=== PATIENT | female | born 1970 | race Caucasian/White ===

== ENCOUNTER 2016-10-29 12:43 | Inpatient (IN) | payer MEDICARE, OTHER ==
[2016-10-29] MEDS ORDERED: Sodium Chloride 0.9% 1,000 ML IV SCH ×2 (15:10→17:30)
[2016-10-29] MEDS ORDERED: Ondansetron HCl/PF 4 MG/2 ML Vial IVP PRN ×2 (15:10→16:13)
[2016-10-29] MEDS ORDERED: Ondansetron ODT 4 MG TAB SL PRN (15:10)
[2016-10-29 15:53] VITALS: BMI 20.9
[2016-10-29] MEDS ORDERED: Dextrose 50% Abboject 50 ML SYRINGE SLOW IVP PRN ×2 (16:13→16:49)
[2016-10-29] MEDS ORDERED: Promethazine HCl 25 MG/ML VIAL IM PRN ×2 (16:13)
[2016-10-29] MEDS ORDERED: Ondansetron ODT 4 MG TAB PO PRN (16:13)
[2016-10-29] MEDS ORDERED: Dextrose 5% in Water 1,000 ML IV PRN ×2 (16:13→16:49)
[2016-10-29] MEDS ORDERED: traMADol HCl 50 MG TAB PO PRN (16:31)
--- NOTE | 2016-10-29 16:32 | PRG ---
DATE OF SERVICE: 10/29/2016 Please see [facility] H\T\P for details. Ms. Machado is seen at the bedside. She is admitted to [facility] surgical floor. She is hemodynamically stable, more awake now and answering questions, complainin g of back pain, pelvic pain. ASSESSMENT: L5 transverse process fracture, sacral fracture, and sternal fracture. PLAN: We will defer to Dr. Daniel for operative versus conservative management of this sacral fr acture. Continue pain control for sternal and transverse process fracture.
[2016-10-29] MEDS ORDERED: Insulin Regular 300 UNITS/3 ML VIAL SC PRN (16:49)
[2016-10-29] MEDS ORDERED: Levothyroxine Sodium 100 MCG TAB PO SCH (17:45)
[2016-10-29] MEDS: Acetaminophen 500 MG TAB PO SCH ×2 (18:01→22:43)
[2016-10-29] MEDS: Ibuprofen 800 MG TAB PO SCH (18:01)
[2016-10-29] MEDS: traMADol HCl 50 MG TAB PO PRN (18:14)
[2016-10-29] MEDS: Sodium Chloride 0.9% 1,000 ML IV SCH ×2 (18:19→21:06)
[2016-10-29] MEDS: Topiramate 100 MG TAB PO SCH (21:06)
[2016-10-29] MEDS: Famotidine 20 MG TAB PO SCH (21:06)
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
[2016-10-30] MEDS: Ibuprofen 800 MG TAB PO SCH ×3 (01:11→16:29)
[2016-10-30] MEDS: Acetaminophen 500 MG TAB PO SCH (05:09)
[2016-10-30] MEDS: Levothyroxine Sodium 112 MCG TAB PO SCH (05:10)
[2016-10-30] MEDS: traMADol HCl 50 MG TAB PO PRN ×2 (05:10→21:05)
[2016-10-30 06:06] LABS: #Basophils 0.1 thou/uL (0.0-0.2); #Eosinphils 0.2 thou/uL (0.0-0.7); #Monocytes 0.5 thou/uL (0.11-0.59); #Neutrophils 6.2 thou/uL (1.40-6.50); %Basophils 0.7 % (0.0-1.0); %Eosinophils 2.2 % (0.0-10.0); %Lymphocytes 12.9 % (21.0-51.0); %Monocytes 5.9 % (0.0-10.0); Hematocrit 39.7 % (36.0-47.0); Mean Platelet Volume 7.5 fL (7.4-10.4); Red Blood Cell (RBC) Count 4.12 mill/uL (4.20-5.40)
[2016-10-30 06:21] LABS: Anion Gap 10 mmol/L (10-20); BUN (Urea Nitrogen) 11 mg/dL (7.0-18.7); Calc. Creatinine Clearance 83 mL/min (70-130); Calcium 8.3 mg/dL (7.8-10.44); Carbon Dioxide 22 mmol/L (22-29); Chloride 108 mmol/L (98-107); Estimated GFR-MDRD 86; Magnesium 1.6 mg/dL (1.6-2.6); Phosphorus 2.3 mg/dL (2.3-4.7)
[2016-10-30] MEDS: Sodium Chloride 0.9% 1,000 ML IV SCH ×2 (07:40→20:49)
[2016-10-30] MEDS: Topiramate 100 MG TAB PO SCH ×2 (08:22→20:51)
[2016-10-30] MEDS: Famotidine 20 MG TAB PO SCH ×2 (08:22→20:51)
[2016-10-30] MEDS ORDERED: Magnesium Sulfate 4 GM in Sodium Chloride 0.9% 250 ML 250 ML IVPB SCH (08:30)
[2016-10-30] MEDS ORDERED: HYDROcodone/Acetaminophen 5/325 mg Tablet PO SCH (10:00)
[2016-10-30] MEDS ORDERED: Acetaminophen 500 MG TAB PO SCH (10:15)
[2016-10-30] MEDS ORDERED: HYDROcodone/Acetaminophen 5/325 mg Tablet PO PRN ×2 (12:31)
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
[2016-10-31] MEDS: Ibuprofen 800 MG TAB PO SCH ×3 (00:09→16:52)
[2016-10-31] MEDS: Levothyroxine Sodium 112 MCG TAB PO SCH (06:12)
[2016-10-31] MEDS: Sodium Chloride 0.9% 1,000 ML IV SCH (06:15)
[2016-10-31] MEDS: Topiramate 100 MG TAB PO SCH ×2 (08:43→21:36)
[2016-10-31] MEDS: Famotidine 20 MG TAB PO SCH ×2 (08:50→21:36)
[2016-10-31] MEDS ORDERED: HYDROcodone/Acetaminophen 7.5/325 mg Tablet PO PRN ×2 (14:17)
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
[2016-10-31] MEDS: traMADol HCl 50 MG TAB PO PRN (19:50)
[2016-10-31] MEDS: Senokot S 8.6-50 MG TAB PO SCH (21:36)
[2016-11-01] MEDS: Ibuprofen 800 MG TAB PO SCH ×3 (00:29→17:50)
[2016-11-01] MEDS: Levothyroxine Sodium 112 MCG TAB PO SCH (05:53)
[2016-11-01] MEDS ORDERED: HYDROcodone/Acetaminophen 10/325 mg Tablet PO PRN (08:18)
[2016-11-01] MEDS: Polyethylene Glycol 3350 17 GM Packet PO SCH (09:02)
[2016-11-01] MEDS: Senokot S 8.6-50 MG TAB PO SCH ×2 (09:02→21:57)
[2016-11-01] MEDS: Topiramate 100 MG TAB PO SCH ×2 (09:02→21:58)
[2016-11-01] MEDS: Bethanechol Chloride 10 MG TAB PO SCH ×3 (09:03→21:57)
[2016-11-01] MEDS: Enoxaparin Sodium 40 MG/0.4 ML SYRINGE SC SCH (09:03)
[2016-11-01] MEDS: HYDROcodone/Acetaminophen 10/325 mg Tablet PO SCH ×4 (09:10→21:57)
[2016-11-01] MEDS: Famotidine 20 MG TAB PO SCH ×2 (09:11→21:56)
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
[2016-11-01 17:10] LABS: Bilirubin Negative (Negative); Blood, Urine Large (Negative); Glucose, Urine (Dipstick) >=1000 mg/dL (Negative); Ketone, Urine 40 mg/dL (Negative); Nitrite Positive (Negative); Protein, Urine (Dipstick) Trace mg/dL (Neg-Trace); Urobilinogen 0.2 mg/dL (0.2-1.0)
[2016-11-01 17:13] LABS: Bacteria/HPF 4+ HPF (None Seen); Hyaline Casts/LPF 0-3 HYALINE CAST LPF (0-3 Hyaline); Squamous Epithelial None Seen HPF (0-3)
[2016-11-01 17:39] LABS: RBC/HPF 21-50 HPF (0-3)
[2016-11-01 18:02] LABS: Yeast-All Forms 1+ HPF (None Seen)
[2016-11-01] MEDS ORDERED: Ciprofloxacin 500 MG TAB PO SCH (20:15)
[2016-11-02] MEDS: HYDROcodone/Acetaminophen 10/325 mg Tablet PO SCH ×6 (00:55→21:24)
[2016-11-02] MEDS: Ibuprofen 800 MG TAB PO SCH ×3 (00:55→17:26)
[2016-11-02] MEDS: Levothyroxine Sodium 112 MCG TAB PO SCH (05:41)
[2016-11-02] MEDS: Ciprofloxacin 500 MG TAB PO SCH ×2 (05:41→19:01)
[2016-11-02] MEDS: Bethanechol Chloride 10 MG TAB PO SCH ×3 (08:49→21:26)
[2016-11-02] MEDS: Enoxaparin Sodium 40 MG/0.4 ML SYRINGE SC SCH (08:50)
[2016-11-02] MEDS: Polyethylene Glycol 3350 17 GM Packet PO SCH (08:51)
[2016-11-02] MEDS: Topiramate 100 MG TAB PO SCH ×2 (08:52→21:26)
[2016-11-02] MEDS: Senokot S 8.6-50 MG TAB PO SCH ×2 (08:52→21:26)
[2016-11-02] MEDS ORDERED: Dextrose 5% in Water 1,000 ML IV PRN (12:37)
[2016-11-02] MEDS ORDERED: Insulin Regular 300 UNITS/3 ML VIAL SC PRN (12:37)
[2016-11-02] MEDS ORDERED: Dextrose 50% Abboject 50 ML SYRINGE SLOW IVP PRN (12:37)
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
[2016-11-03] MEDS: HYDROcodone/Acetaminophen 10/325 mg Tablet PO SCH ×4 (00:28→12:52)
[2016-11-03] MEDS: Ibuprofen 800 MG TAB PO SCH ×2 (00:28→08:51)
[2016-11-03] MEDS: Levothyroxine Sodium 112 MCG TAB PO SCH (05:24)
[2016-11-03] MEDS: Ciprofloxacin 500 MG TAB PO SCH (05:24)
[2016-11-03] MEDS: Enoxaparin Sodium 40 MG/0.4 ML SYRINGE SC SCH (08:51)
[2016-11-03] MEDS: Senokot S 8.6-50 MG TAB PO SCH (08:53)
[2016-11-03] MEDS: Topiramate 100 MG TAB PO SCH (08:53)
[2016-11-03] MEDS: Bethanechol Chloride 10 MG TAB PO SCH (08:59)
[2016-11-03] MEDS: Polyethylene Glycol 3350 17 GM Packet PO SCH (08:59)
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
[2016-11-03 11:58] VITALS: BP 119/72; TEMP 98
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
== END 2016-11-03 13:21 | DRG 52 ==
LOC: ERS 12:43 → SURG B 13:28
PROVIDERS: ADMIT Surgery; ATTEND Surgery
DX: S34.139A Unspecified injury to sacral spinal cord, initial encounter (principal); S22.20XA Unspecified fracture of sternum, initial encounter for closed fracture; S32.058A Other fracture of fifth lumbar vertebra, initial encounter for closed fracture; E10.9 Type 1 diabetes mellitus without complications; E03.9 Hypothyroidism, unspecified; R33.9 Retention of urine, unspecified; Z88.5 Allergy status to narcotic agent; Z88.8 Allergy status to other drugs, medicaments and biological substances; Z83.3 Family history of diabetes mellitus; Z82.49 Family history of ischemic heart disease and other diseases of the circulatory system; V47.5XXA Car driver injured in collision with fixed or stationary object in traffic accident, initial encounter
CPT/HCPCS: 36415; 36416; 51702; 80048; 81001; 83735; 84100; 85025; 87077; 87086; 87186; 96360; G0390; G8978-GP-CM; G8979-GP-CJ; G8987-GO-CK; G8988-GO-CI; J1650; J2270; J2405; J3475; J7050